=== PATIENT | female | born 1940 | race Hispanic/Latino ===

== ENCOUNTER 2024-11-02 16:41 | Inpatient (IN) | payer OTHER ==
--- NOTE | 2024-11-02 17:45 | RAD REPORT ---
EXAM: Chest Single View HISTORY: Congestion;Chest pain;Cough COMPARISON: None. FINDINGS: LUNGS/PLEURA: Moderate patchy airspace disease in the left lower lobe concerning for pneumonia. Some mild right basilar opacities may also be present. MEDIASTINUM: The mediastinal silhouette is within normal limits. CARDIAC: The cardiac silhouette is within normal limits. UPPER ABDOMEN: No significant abnormality. BONES: No acute abnormality. LINES/TUBES/OTHER: N/A IMPRESSION: Consolidative airspace disease in the left lung base concerning for pneumonia. Possible mild right ba silar opacities as well. Recommend follow-up radiography in 6-8 weeks to ensure resolution.
[2024-11-02 19:34] LABS: Absolute Lymphocytes (CBC) 0.8 K/uL (0.7-4.9); Absolute Monocytes 0.4 K/uL (0.1-1.3); Absolute Neutrophil 12.2 K/uL (1.8-8.0); Basophils % 0.2 % (0-1.3); Eosinophils % 0.1 % (0-4.4); Hematocrit 40.1 % (36.0-45.0); Hemoglobin 13.8 g/dL (12.0-15.0); MCH 31.3 pg (27.0-35.0); MCHC 34.4 g/dL (32.0-36.0); MPV 9.3 fL (7.6-11.3); Monocytes % 3.2 % (3.3-12.3); Neutrophils % 90.5 % (41.7-73.7); Platelets 121 thou/uL (152-406); RBC Red Blood Cell Count 4.41 M/uL (3.86-4.86); Red Cell Distribution Width 14.6 % (12.1-15.2)
[2024-11-02 19:36] LABS: PT Prothrombin Time 17.7 SECONDS (9.4-12.5); PTT, Activated Partial Thromb 38.9 SECONDS (24.3-36.9); Protime INR 1.69
[2024-11-02 19:48] LABS: Albumin 3.1 g/dL (3.4-5.0); Albumin/Globulin Ratio 0.7 (1.1-1.8); Anion Gap 12.6 mEq/L (5.0-15.0); Bilirubin Total 0.6 mg/dL (0.2-1.0); Globulin 4.5 g/dL (2.3-3.5); Potassium 3.6 mEq/L (3.5-5.1); Protein, Total 7.6 g/dL (6.4-8.2)
[2024-11-02 20:07] LABS: SARS-CoV-2 Antigen CONTROL BLUE LINE VIS/BG OK; SARS-CoV-2 Antigen Rapid Res Negative (Negative)
--- NOTE | 2024-11-02 20:22 | ER ---
Nurse's Notes [facility] Name: Bri Corona Age: 83 yrs Sex: Female : 1940 Arrival Date: 11/02/2024 Time: 16:41 Bed 26 Private MD: Diagnosis: Pneumonia, unspecified organism;Influenza due to identified novel influenza A virus;Hyponatremia Presentation: 11/02 17:03 Chief complaint: Headache, painful cough, congestin, body aches, and fever x 1 week. hb Coronavirus screen: Client presents with at least one sign or symptom that may indicate coronavirus-19. Standard/surgical mask placed on the client. Provider contacted for isolation considerations. Ebola Screen: No symptoms or risks identified at this time. Initial Sepsis Screen: Does the patient meet any 2 criteria? No. Patient's initial sepsis screen is negative. Does the patient have a suspected source of infection? No. Patient's initial sepsis screen is negative. Risk Assessment: Do you want to hurt yourself or someone else? Patient reports no desire to harm self or others. Onset of symptoms was October 26, 2023. 17:03 Method Of Arrival: Wheelchair hb 17:03 Acuity: NEO 3 hb Historical: - Allergies: 17:05 No Known Allergies; hb - Immunization history:: Adult Immunizations up to date. - Infectious Disease History:: Denies. - Social history:: Smoking status: Patient denies any tobacco usage or history of. Screenin:00 [facility] ED Fall Risk Assessment (Adult) History of falling in the last 3 months, jb4 including since admission No falls in past 3 months (0 pts) Confusion or Disorientation No (0 pts) Intoxicated or Sedated No (0 pts) Impaired Gait No (0 pts) Mobility Assist Device Used No (0 pt) Altered Elimination No (0 pt) Score/Fall Risk Level 0 - 2 = Low Risk Oriented to surroundings, Maintained a safe environment. Abuse screen: Denies threats or abuse. Nutritional screening: No deficits noted. Tuberculosis screening: No symptoms or risk factors identified. Assessment: 19:00 General: Appears in no apparent distress. comfortable, Behavior is calm, cooperative, jb4 appropriate for age. Pain: Denies pain. Cardiovascular: Patient's skin is warm and dry. GI: Reports diarrhea. : No signs and/or symptoms were reported regarding the genitourinary system. Derm: Skin is intact, Skin is pink, warm \T\ dry. Musculoskeletal: Circulation, motion, and sensation intact. Range of motion: intact in all extremities. 19:00 Neuro: Level of Consciousness is awake, alert, obeys commands, Oriented to person, jb4 place, time, situation. Respiratory: Airway is patent Respiratory effort is even, unlabored, Respiratory pattern is regular, symmetrical. 20:00 Reassessment: Patient appears in no apparent distress at this time. Patient and/or jb4 family updated on plan of care and expected duration. Pain level reassessed. Patient is alert, oriented x 3, equal unlabored respirations, skin warm/dry/pink. 21:00 Reassessment: Patient appears in no apparent distress at this time. Patient and/or jb4 family updated on plan of care and expected duration. Pain level reassessed. Patient is alert, oriented x 3, equal unlabored respirations, skin warm/dry/pink. 22:00 Reassessment: Patient appears in no apparent distress at this time. Patient and/or jb4 family updated on plan of care and expected duration. Pain level reassessed. Patient is alert, oriented x 3, equal unlabored respirations, skin warm/dry/pink. 11/03 04:44 Pain: Denies pain. rg5 04:45 Pain: Pain does not radiate. Pain began. rg5 Vital Signs: 11/02 17:03 BP 108 / 53; Pulse 73; Resp 20; Temp 100(O); Pulse Ox 98% on R/A; Weight 79.38 kg; hb Height 5 ft. 5 in. ; Pain 5/10; 19:45 BP 122 / 61; Pulse 72; Resp 21; Pulse Ox 100% on R/A; jb4 20:30 BP 129 / 53; Pulse 71; Resp 20; Pulse Ox 97% on R/A; jb4 21:45 BP 109 / 54; Pulse 69; Resp 15; Pulse Ox 98% on R/A; jb4 17:03 Body Mass Index 29.12 (79.38 kg, 165.1 cm) hb 17:03 Pain Scale: Adult hb ED Course: 16:46 Patient arrived in ED. im 16:48 Iman Hearn FNP-C is PHCP. kb 16:48 Woody Parker DO is Attending Physician. kb 17:05 Triage completed. hb 17:05 Arm band placed on. hb 17:37 Chest Single View XRAY In Process Unspecified. EDMS 19:00 Patient has correct armband on for positive identification. Bed in low position. Call jb4 light in reach. Side rails up X 1. Provided Education on: plan of care. Client placed on continuous cardiac and pulse oximetry monitoring. NIBP monitoring applied. nurse monitoring on. Pulse ox on. 19:00 No provider procedures requiring assistance completed. Patient maintains SpO2 jb4 saturation greater than 95% on room air. 19:16 Blood Culture Adult (2) Sent. vk 19:16 CBC with Diff Sent. vk 19:16 CMP Sent. vk 19:16 Lactate w/ 2H reflex if indic. Sent. vk 19:16 Protime (+inr) Sent. vk 19:16 Ptt, Activated Sent. vk 19:16 Flu Sent. vk 19:16 SARS-COV-2 Antigen Rapid Sent. vk 19:16 Troponin High Sensitivity Sent. vk 19:16 Inserted saline lock: 20 gauge in right antecubital area, using aseptic technique. vk Blood collected. Flushed with 10 mL NS. 19:35 SARS-COV-2 Antigen Rapid Sent. vk 19:35 Flu Sent. vk 19:35 Troponin High Sensitivity Sent. vk 20:21 Prince Richter MD is Hospitalizing Provider. kb 22:00 Patient admitted, IV remains in place. 4 11/03 03:12 John Delgado, RN is Primary Nurse. jb4 05:40 Assisted to bedside commode. rk3 07:20 Primary Nurse role handed off by John Delgado, RN bd Administered Medications: 11/02 21:02 Drug: Acetaminophen PO 650 mg PO once Route: PO; jb4 11/03 03:24 Follow up: Response: No adverse reaction; Marked relief of symptoms jb4 11/02 21:02 Drug: NS 0.9% IV 500 ml IV at bolus once; to be given as a bolus over 30 minutes Route: jb4 IV; Rate: bolus; Site: right antecubital; 21:32 Follow up: Response: No adverse reaction; IV Status: Completed infusion; IV Intake: jb4 500ml 21:02 Drug: Rocephin IV 1 grams IV at calculated rate once; Given slow IV push per pharmacy jb4 instructions Route: IV; Rate: calculated rate; Site: right antecubital; 21:05 Follow up: Response: No adverse reaction; IV Status: Completed infusion; IV Intake: [id number] 21:02 Drug: Zithromax IVPB 500 mg IVPB once over 1 hrs; mix in 250 mL NS Route: IVPB; Infused jb4 Over: 1 hrs; Site: right antecubital; 22:02 Follow up: Response: No adverse reaction; IV Status: Completed infusion; IV Intake: jb4 250ml Medication: 11/03 04:44 VIS not applicable for this client. rg5 Intake: 11/02 21:05 IV: 10ml; Total: 10ml. jb4 21:32 IV: 500ml; Total: 510ml. jb4 22:02 IV: 250ml; Total: 760ml. jb4 Outcome: 20:21 Decision to Hospitalize by Provider. kb 22:00 Admitted to ER Hold. Please see [facility] for further documentation. jb4 22:00 Condition: stable 22:00 Discharge instructions given to patient, Instructed on the need for admit, Demonstrated understanding of instructions, 11/03 16:57 Patient left the ED. ll1 Signatures: Dispatcher [employer] EDMS Iman Hearn, APPLE PRESS OPERATOR-C APPLE PRESS OPERATOR-Ckb Fatou Rey Heather, RN RN hb Bryson, James, RN RN jbClaude Quintanilla RN RN ll1 Hilary Salinas Vivian vk Gallardo, Rommel, RN RN rg5 Moy Camacho rk3 Corrections: (The following items were deleted from the chart) 03:16 03:12 General: Appears in no apparent distress. comfortable, Behavior is calm, jb4 cooperative, appropriate for age, jb4 : 03:12 Pain: Denies pain. jb4 jb4 :16 03:12 Neuro: Level of Consciousness is awake, alert, obeys commands, Oriented to jb4 person, place, time, situation, jb4 : 03:12 Cardiovascular: Patient's skin is warm and dry. jb4 jb4 :16 03:12 Respiratory: Airway is patent Respiratory effort is even, unlabored, Respiratory jb4 pattern is regular, symmetrical, jb4 : 03:12 GI: Reports diarrhea, jb4 jb4 03:16 03:12 : No signs and/or symptoms were reported regarding the genitourinary system. [id number] 03:16 03:12 Derm: Skin is intact, Skin is pink, warm \T\ dry. jb4 jb4 03:16 03:12 Musculoskeletal: Circulation, motion, and sensation intact. Range of motion: jb4 intact in all extremities, jb4 03:31 03:30 Response: No adverse reaction; IV Status: Completed infusion; IV Intake: 10ml jb4 jb4 06:19 05:40 Assisted to bedside commode. rk3 rk3
--- NOTE | 2024-11-02 20:22 | EDPHYS ---
Physician Documentation [facility] Name: Bri Corona Age: 83 yrs Sex: Female : 1940 Arrival Date: 11/02/2024 Time: 16:41 Bed 26 Private MD: ED Physician Woody Parker HPI: 11/02 17:05 This 83 yrs old Female presents to ER via Wheelchair with complaints of Flu Symptoms. kb 17:05 Pt is an 83 year old female who presents for cough, chest pain with cough, fever, runny kb nose, congestion, post tussive vomiting that started one week ago. Family member is also sick with similar symptoms. Denies shortness of breath. . Historical: - Allergies: 17:05 No Known Allergies; hb - Immunization history:: Adult Immunizations up to date. - Infectious Disease History:: Denies. - Social history:: Smoking status: Patient denies any tobacco usage or history of. ROS: 17:04 Constitutional: As per HPI kb Exam: 17:04 Constitutional: This is a well developed, well nourished patient who is awake, alert, kb and in no acute distress. Head/Face: Normocephalic, atraumatic. ENT: Moist Mucous membranes Cardiovascular: Regular rate Abdomen/GI: Soft, non-tender. No distention Skin: Warm, dry with normal turgor. Normal color. MS/ Extremity: Pulses equal, no cyanosis. Neurovascular intact. Full, normal range of motion. Neuro: Awake and alert, GCS 15, oriented to person, place, time, and situation. 17:04 Chest/axilla: Palpation: tenderness, that is mild, of the anterior aspect of right upper chest and anterior aspect of left upper chest, that partially reproduces the patient's complaints, 17:04 Respiratory: the patient does not display signs of respiratory distress, Respirations: normal, Breath sounds: wheezing: expiratory that is mild, is heard in the left lower lobe and left posterior lower lobe, Vital Signs: 17:03 BP 108 / 53; Pulse 73; Resp 20; Temp 100(O); Pulse Ox 98% on R/A; Weight 79.38 kg; hb Height 5 ft. 5 in. ; Pain 5/10; 19:45 BP 122 / 61; Pulse 72; Resp 21; Pulse Ox 100% on R/A; jb4 20:30 BP 129 / 53; Pulse 71; Resp 20; Pulse Ox 97% on R/A; jb4 21:45 BP 109 / 54; Pulse 69; Resp 15; Pulse Ox 98% on R/A; jb4 17:03 Body Mass Index 29.12 (79.38 kg, 165.1 cm) hb 17:03 Pain Scale: Adult hb MDM: 16:48 Medical Screening Exam initiated kb 17:07 Data reviewed: vital signs, nurses notes. Historians other than the Patient: Family kb Member: family member. 20:20 Differential diagnosis: flu, covid, uri, pneumonia. Consideration of kb Admission/Observation Patient was admitted/placed on observation. Escalation of care including admission/observation considered. Management of patient was discussed with the following: Hospitalist: Dr Richter accepts pt for admission. Counseling: I had a detailed discussion with the patient and/or guardian regarding the historical points, exam findings, and any diagnostic results supporting the discharge/admit diagnosis, lab results, radiology results, the need for further work-up and treatment in the hospital. 21:30 ED course: Sepsis reevaluation complete. kb 11/02 17:01 Order name: Blood Culture Adult (2) kb 11/02 17:01 Order name: CBC with Diff; Complete Time: 21:46 kb 11/02 17:01 Order name: CMP; Complete Time: 19:50 kb 11/02 17:01 Order name: Lactate w/ 2H reflex if indic.; Complete Time: 19:50 kb 11/02 17:01 Order name: Protime (+inr); Complete Time: 19:38 kb 11/02 17:01 Order name: Ptt, Activated; Complete Time: 19:38 kb 11/02 17:01 Order name: Troponin High Sensitivity; Complete Time: 19:50 kb 11/02 17:01 Order name: Flu; Complete Time: 20:08 kb 11/02 17:01 Order name: SARS-COV-2 Antigen Rapid; Complete Time: 20:08 kb 11/02 20:29 Order name: Lactate w/ 2H reflex if indic.; Complete Time: 10:51 EDMS 11/02 20:29 Order name: Magnesium; Complete Time: 10:51 EDMS 11/02 20:29 Order name: NT PRO-BNP; Complete Time: 10:51 EDMS 02/03 20:29 Order name: Phosphorus; Complete Time: 10:51 EDMS 11/02 20:29 Order name: Basic Metabolic Panel EDMS 11/02 20:29 Order name: Basic Metabolic Panel; Complete Time: 10:51 EDMS 11/02 20:29 Order name: Basic Metabolic Panel EDMS 11/02 20:29 Order name: Basic Metabolic Panel EDMS 11/02 20:29 Order name: CBC with Automated Diff EDMS 11/02 20:29 Order name: CBC with Automated Diff; Complete Time: 10:51 EDMS 11/02 20:29 Order name: CBC with Automated Diff EDMS 11/02 20:29 Order name: CBC with Automated Diff EDMS 11/02 20:29 Order name: Lipid Profile EDMS 11/02 20:29 Order name: Lipid Profile; Complete Time: 10:51 EDMS 11/02 21:43 Order name: CBC Smear Scan; Complete Time: 21:46 EDMS 11/03 01:17 Order name: Glucose, Ancillary Testing; Complete Time: 01:30 EDMS 11/03 01:57 Order name: Throat Culture EDMS 11/03 01:58 Order name: Respiratory Syncytial Virus Ag; Complete Time: 01:58 EDMS 11/03 12:13 Order name: Glucose, Ancillary Testing; Complete Time: 12:28 EDMS 11/02 17:01 Order name: Chest Single View XRAY; Complete Time: 17:47 kb 0203 17:01 Order name: Cardiac monitoring; Complete Time: 19:16 kb 0203 17:01 Order name: EKG - Nurse/Tech; Complete Time: 19:35 kb 11/02 17:01 Order name: IV Saline Lock - Large Bore; Complete Time: 19:16 kb 11/02 17:01 Order name: Labs collected and sent; Complete Time: 19:16 kb 0203 17:01 Order name: O2 Per Protocol; Complete Time: 19:15 kb 02 17:01 Order name: O2 Sat Monitoring; Complete Time: 19:16 kb 0203 17:01 Order name: Vital Signs; Complete Time: 19:16 kb EC:32 Rate is 72 beats/min. Rhythm is regular. QRS [place] is Normal. NC interval is normal at kb 160 msec. QRS interval is normal at 118 msec. QT interval is normal at 429 msec. Administered Medications: 21:02 Drug: Acetaminophen PO 650 mg PO once Route: PO; jb4 11/03 03:24 Follow up: Response: No adverse reaction; Marked relief of symptoms jb4 11/02 21:02 Drug: NS 0.9% IV 500 ml IV at bolus once; to be given as a bolus over 30 minutes Route: jb4 IV; Rate: bolus; Site: right antecubital; 21:32 Follow up: Response: No adverse reaction; IV Status: Completed infusion; IV Intake: jb4 500ml 21:02 Drug: Rocephin IV 1 grams IV at calculated rate once; Given slow IV push per pharmacy jb4 instructions Route: IV; Rate: calculated rate; Site: right antecubital; 21:05 Follow up: Response: No adverse reaction; IV Status: Completed infusion; IV Intake: [id number] 21:02 Drug: Zithromax IVPB 500 mg IVPB once over 1 hrs; mix in 250 mL NS Route: IVPB; Infused jb4 Over: 1 hrs; Site: right antecubital; 22:02 Follow up: Response: No adverse reaction; IV Status: Completed infusion; IV Intake: jb4 250ml Disposition: 17:33 I was immediately available on-site in the Emergency Department for consultation in the ms3 care of the patient. Disposition Summary: 11/02/24 20:21 Hospitalization Ordered Notes: Hospitalization Status: Observation kb Provider: Prince yuri Richter Condition: Stable kb Problem: new kb Symptoms: are unchanged kb Bed/Room Type: Standard Location: Telemetry/MedSurg (observation)(11/03/24 15:34) Room Assignment: 206(11/03/24 15:34) Diagnosis - Pneumonia, unspecified organism kb - Influenza due to identified novel influenza A virus kb - Hyponatremia kb Forms: - Medication Reconciliation Form kb - SBAR form kb - Leadership Thank You Letter kb Signatures: Dispatcher [employer] Iman Guzman FNP-C FNP-Ckb Dirrim, Barbara bd Baxter, Heather, RN RN John Hastings RN RN jb4 Woody Parker DO DO ms3 Alondra Amor rv1 Corrections: (The following items were deleted from the chart) 17:01 17:01 BLOOD CULTURE*+BA.LAB.BRZ ordered. EDMS EDMS 17:01 17:01 CBC+H.LAB.BRZ ordered. EDMS EDMS 17:01 17:01 COMPREHENSIVE METABOLIC PANEL+C.LAB.BRZ ordered. EDMS EDMS 17:01 17:01 LACTATE+C.LAB.BRZ ordered. EDMS EDMS 17:01 17:01 PROTIME (+INR)+COAG.LAB.BRZ ordered. EDMS EDMS 17:01 17:01 PTT, ACTIVATED+COAG.LAB.BRZ ordered. EDMS EDMS 17:01 17:01 Troponin High Sensitivity+C.LAB.BRZ ordered. EDMS EDMS 17:01 17:01 Chest Single View+RAD.RAD.BRZ ordered. EDMS EDMS 17:02 17:01 Influenza Screen (A \T\ B)+BA.LAB.BRZ ordered. EDMS EDMS 17:02 17:01 SARS-COV-2 Antigen Rapid+I.LAB.BRZ ordered. EDMS EDMS 21:19 17:01 Accucheck ordered. kb jb4 21:27 20:21 Telemetry/MedSurg (observation) kb rv1 21:27 20:21 kb rv1 11/03 15:34 11/02 21:27 BR ER HOLD rv1 bd 11/03 15:34 11/02 21:27 ERHOLD- rv1 bd
[2024-11-02] MEDS ORDERED: ACETAMINOPHEN 500 MG TAB PO PRN (20:23)
[2024-11-02] MEDS ORDERED: ONDANSETRON 4 MG/2 ML VIAL IV PRN (20:23)
--- NOTE | 2024-11-02 20:32 | P.HP ---
Certification for Inpatient Patient admitted to: Inpatient With expected LOS: >2 Midnights Practitioner: I am a practitioner with admitting privileges, knowledge of patient current condition, hospital course, and medical plan of care. Services: Services provided to patient in accordance with Admission requirements found in Title 42 Section 412.3 of the Code of Federal Regulations Patient History Date of Service: 11/02/24 Reason for admission: Flulike symptoms, influenza A, left lower lobe pneumonia History of Present Illness: Patient is a 83-year-old female who presented to the ER complaining of flulike symptoms. She has been having pleuritic chest pain, cough and fever. Her symptoms have been ongoing for the past 4 days. Associated symptoms include rhinorrhea, congestion and vomiting. Patient has no shortness of breath. Reports sick contact. 1 family member has been experiencing similar symptoms. She arrived in the ER hemodynamically stable. Her WBC is more than 13,000. Patient has a left lower lobe consolidation suggestive of pneumonia. She also tested positive for influenza A. She is being admitted for sepsis secondary to community-acquired pneumonia. Allergies No Known Allergies Allergy (Unverified 11/02/24 21:45) Physical Examination - Physical Exam General: Acute distress, Other (congested) HEENT: Atraumatic, Normocephalic Respiratory: Diminished Cardiovascular: No edema, Normal pulses, Regular rate/rhythm, Normal S1 S2 Neurological: Normal speech - Studies Laboratory Data (last 24 hrs) 11/02/24 11/02/24 11/02/24 19:12 19:12 19:12 WBC 13.40 H Hgb 13.8 Hct 40.1 Plt Count 121 L PT 17.7 H INR 1.69 APTT 38.9 H Sodium 128 L Potassium 3.6 BUN 33 H Creatinine 1.30 H Glucose 100 Total Bilirubin 0.6 AST 44 H ALT 24 Alkaline Phosphatase 75 Microbiology Data (last 24 hrs): 11/02/24 19:25 Nasopharnyx Influenza Type A Antigen Screen - Final 11/02/24 19:25 Nasopharnyx Influenza Type B Antigen Screen - Final Assessment and Plan - Problems (Diagnosis) (1) Sepsis Current Visit: Yes Status: Acute (2) Community acquired pneumonia Current Visit: Yes Status: Acute (3) Hyponatremia Current Visit: Yes Status: Acute - Plan Assessment This is a 83-year-old female who is being admitted for community-acquired pneumonia complicated by influenza A. She meets criteria for sepsis as evidenced by fever, leukocytosis and evidence of infection. Sepsis Bacterial pneumonia Influenza A infection Hyponatremia Renal insufficiency, possibly YAZ versus CKD stage III Plan: Will admit inpatient with telemetry Start patient on ceftriaxone and azithromycin Tamiflu will also be added due to evidence of influenza Antitussives Resume rest of home medications upon reconciliation Patient is hemodynamically stable She will benefit from PT/OT before discharge Patient is [place]isian-speaking. Daughter states that patient takes apixaban. She has been resumed. The indication and dosage is still unclear. Family to bring home meds tomorrow - Advance Directives Does patient have a Living Will: No Does patient have a Durable POA for Healthcare: No
[2024-11-02] MEDS ORDERED: AZITHROMYCIN 500 MG INJ IVPB ONE (20:38)
[2024-11-02] MEDS ORDERED: CEFTRIAXONE 1000 MG/VIAL ONE (20:38)
[2024-11-02] MEDS ORDERED: ACETAMINOPHEN 325 MG TABLET ONE (20:38)
[2024-11-02] MEDS ORDERED: NA CHLORIDE 0.9% 250 ML ONE (20:38)
[2024-11-02] MEDS ORDERED: NA CHLORIDE 0.9% 500 ML ONE (20:39)
[2024-11-02] MEDS: D5 0.9 NS 1,000 ML IV SCH (21:00)
[2024-11-02 21:42] LABS: Blood Morphology Comment NOT SEEN (NOT SEEN); Platelet Estimate DECR; Toxic Granulation PRESENT; White Blood Cell Scan OK (OK)
[2024-11-02] MEDS: APIXABAN 2.5 MG TABLET PO SCH (23:45)
[2024-11-03] MEDS: NA CHLORIDE 0.9% 1,000 ML IV SCH (00:25)
[2024-11-03] MEDS ORDERED: GUAIFENESIN 600 MG SA TAB PO ONE ×2 (00:36→09:12)
[2024-11-03] MEDS ORDERED: OSELTAMIVIR 75 MG CAP PO ONE ×2 (00:39→11:55)
[2024-11-03] MEDS ORDERED: BENZONATATE 100 MG CAP PO ONE (00:39)
[2024-11-03] MEDS ORDERED: NA CHLORIDE 0.9% 1,000 ML ONE ×2 (00:40→16:53)
[2024-11-03] MEDS: OSELTAMIVIR 75 MG CAP PO ONE (00:49)
[2024-11-03] MEDS: BENZONATATE 100 MG CAP PO SCH ×2 (00:50→10:30)
[2024-11-03] MEDS: GUAIFENESIN 600 MG SA TAB PO SCH (00:50)
[2024-11-03 03:43] VITALS: BMI 29.1
[2024-11-03 05:16] LABS: Absolute Basophils 0.1 K/uL (0-0.5); Absolute Lymphocytes (CBC) 0.9 K/uL (0.7-4.9); Absolute Monocytes 0.6 K/uL (0.1-1.3); Absolute Neutrophil 9.6 K/uL (1.8-8.0); Basophils % 0.5 % (0-1.3); Eosinophils % 0.3 % (0-4.4); Hematocrit 37.8 % (36.0-45.0); Hemoglobin 12.5 g/dL (12.0-15.0); Lymphocytes % 7.9 % (15.3-44.8); MCH 30.6 pg (27.0-35.0); MCHC 33.1 g/dL (32.0-36.0); MCV 92.3 fL (80-100); MPV 8.8 fL (7.6-11.3); Monocytes % 5.8 % (3.3-12.3); Nucleated Red Blood Cells % 0.2 % (0-0); Platelets 117 thou/uL (152-406); Red Cell Distribution Width 14.8 % (12.1-15.2)
[2024-11-03 05:21] LABS: Neutrophils % 85.5 % (41.7-73.7)
[2024-11-03 05:48] LABS: Magnesium 2.3 mg/dL (1.6-2.4); Phosphorus 2.1 mg/dL (2.5-4.9)
[2024-11-03 05:56] LABS: Anion Gap 11.5 mEq/L (5.0-15.0); Potassium 3.5 mEq/L (3.5-5.1)
[2024-11-03] MEDS ORDERED: OSELTAMIVIR 75 MG CAP PO SCH (09:00)
[2024-11-03] MEDS: CEFTRIAXONE 1,000 MG in NA CHLORIDE 0.9% 50 ML IVPB SCH (09:00)
[2024-11-03] MEDS ORDERED: CEFTRIAXONE 1000 MG/VIAL ONE (09:12)
[2024-11-03] MEDS ORDERED: NA CHLORIDE 0.9% 50 ML ONE (09:13)
[2024-11-03] MEDS ORDERED: APIXABAN 2.5 MG TABLET ONE (09:13)
[2024-11-03] MEDS: GUAIFENESIN/CODEINE 5ML UCUP PO ONE (09:15)
[2024-11-03] MEDS: OSELTAMIVIR 30 MG CAP PO SCH (10:00)
[2024-11-03] MEDS ORDERED: GUAIFENESIN/CODEINE 5ML UCUP ONE (11:56)
--- NOTE | 2024-11-03 12:11 | EKG ---
Test Date: 2024-11-02 Test Time: 19:28:49 Distributed Generation Project Manager: THUY MEASUREMENT RESULTS: Intervals: Rate: 72 TN: 160 QRSD: 118 QT: 392 QTc: 429 [place]: P: 85 TN: 160 QRS: -3 T: 81 INTERPRETIVE STATEMENTS: Normal sinus rhythm Nonspecific intraventricular conduction delay Borderline ECG No previous ECG available for comparison Electronically Signed On 11-03-24 12:10:07 MANAGER BRAND by Tima Gee
[2024-11-03] MEDS: AZITHROMYCIN IV 500 MG in NA CHLORIDE 0.9% 250 ML IVPB SCH (17:49)
[2024-11-04] MEDS ORDERED: IPRATROPIUM BROM 0.5MG/2.5ML NEB PRN (01:32)
[2024-11-04] MEDS ORDERED: ALBUTEROL 2.5 MG/3 ML NEB SOL NEB PRN (01:32)
--- NOTE | 2024-11-04 01:34 | P.PN ---
Subjective Date of Service: 11/03/24 Patient's coughing is much better. Patient given antitussives. Patient with influenza. Continue with droplet precaution. Continue with Tamiflu. Continue with steroids and neb treatments. Clinically doing better. Review of Systems 10-point ROS is otherwise unremarkable Physical Examination - Vital Signs Temperature: 97.4 F Blood Pressure: 138/68 Pulse: 66 Respirations: 18 Pulse Ox (%): 96 - Physical Exam General: Alert, In no apparent distress, Oriented x3 Respiratory: Other ( coarse breath sounds) Cardiovascular: Regular rate/rhythm, Normal S1 S2 Gastrointestinal: Normal bowel sounds, Soft and benign, Non-distended, No tenderness Musculoskeletal: No clubbing, No swelling, No tenderness Integumentary: No rashes Neurological: Other ( no focal deficits) - Studies Microbiology Data (last 24 hrs): 11/02/24 19:25 Nasopharnyx Influenza Type A Antigen Screen - Final 11/02/24 19:25 Nasopharnyx Influenza Type B Antigen Screen - Final Medications List Reviewed: Yes Assessment & Plan - Problems (Diagnosis) (1) Influenza and pneumonia Current Visit: Yes Status: Acute (2) Hyponatremia Current Visit: Yes Status: Acute (3) Sepsis Current Visit: Yes Status: Acute - Advance Directives Does patient have a Living Will: No Does patient have a Durable POA for Healthcare: No
[2024-11-04] MEDS: GUAIFENESIN/CODEINE 5ML UCUP PO PRN (02:16)
[2024-11-04] MEDS: METHYLPREDNISOLONE 125 MG INJ IV SCH (05:35)
[2024-11-04] MEDS: LEVOTHYROXINE SOD 0.05 MG TABLET PO SCH (05:35)
[2024-11-04 06:17] LABS: Absolute Basophils 0.1 K/uL (0-0.5); Absolute Eosinophils 0.1 K/uL (0-0.5); Absolute Lymphocytes (CBC) 1.1 K/uL (0.7-4.9); Absolute Monocytes 0.8 K/uL (0.1-1.3); Absolute Neutrophil 6.6 K/uL (1.8-8.0); Basophils % 1.1 % (0-1.3); Eosinophils % 1.6 % (0-4.4); Hematocrit 38.3 % (36.0-45.0); Hemoglobin 13.2 g/dL (12.0-15.0); MCH 31.4 pg (27.0-35.0); MCHC 34.3 g/dL (32.0-36.0); MCV 91.6 fL (80-100); MPV 8.9 fL (7.6-11.3); Monocytes % 9.3 % (3.3-12.3); Nucleated Red Blood Cells % 0.1 % (0-0); Platelets 144 thou/uL (152-406); RBC Red Blood Cell Count 4.18 M/uL (3.86-4.86); Red Cell Distribution Width 14.8 % (12.1-15.2)
[2024-11-04 06:31] LABS: PT Prothrombin Time 14.2 SECONDS (9.4-12.5); PTT, Activated Partial Thromb 34.2 SECONDS (24.3-36.9); Protime INR 1.36
[2024-11-04 06:42] LABS: Anion Gap 9.1 mEq/L (5.0-15.0); Potassium 4.1 mEq/L (3.5-5.1)
[2024-11-04] MEDS: carvediloL 25 MG TAB PO SCH (08:59)
[2024-11-04] MEDS: ROSUVASTATIN 10 MG TAB PO SCH (08:59)
[2024-11-04] MEDS: **PT MED**Empagliflozin [Jardiance] 25 MG Tablet PO SCH (09:00)
[2024-11-04 10:28] LABS: Band Neutrophils 3 % (0-1); Differential Total Cells Count 100; Eosinophils 2 % (0-3); Lymphocytes 12 % (15-42); Monocytes 8 % (0-10); Segmented Neutrophils 73 % (40-80)
[2024-11-04 10:29] LABS: Atypical Lymphocytes 1 %; Metamyelocytes 1 % (0-0); Platelet Estimate DECR
[2024-11-04 10:30] LABS: Blood Morphology Comment NOT SEEN (NOT SEEN)
[2024-11-04 12:11] VITALS: BP 148/67; TEMP 97.8
[2024-11-04 12:23] VITALS: O2SAT 95
--- NOTE | 2024-11-04 13:23 | ECHO ---
HEIGHT: 5 ft 5 in WEIGHT: 175 lb 0.047 oz DATE OF STUDY: 11/04/[address]: Cynthia Batista MD 2-DIMENSIONAL: YES M.MODE: YES DOPPLER: YES COLOR FLOW: YES TDS: YES PORTABLE: YES DEFINITY: BUBBLE STUDY: DIAGNOSIS: CONGESTIVE HEART FAILURE CARDIAC HISTORY: CATHERIZATION: NO SURGERY: NO PROSTHETIC VALVE: NO PACEMAKER: NO MEASUREMENTS (cm) DIASTOLIC (NORMALS) SYSTOLIC (NORMALS) IVSd 1.1 (0.6-1.2) LA Diam 3.0 (1.9-4.0) LVEF 55% LVIDd 4.1 (3.5-5.7) LVIDs 3.0 (2.0-3.5) %FS 29% LVPWd 1.2 (0.6-1.2) Ao Diam 2.6 (2.0-3.7) 2 DIMENSIONAL ASSESSMENT: RIGHT ATRIUM: NORMAL LEFT ATRIUM: NORMAL RIGHT VENTRICLE: NORMAL LEFT VENTRICLE: NORMAL TRICUSPID VALVE: MODERATE TRICUSPID REGURGITATION MITRAL VALVE: MILD MITRAL REGURGITATION PULMONIC VALVE: NORMAL AORTIC VALVE: NORMAL PERICARDIAL EFFUSION: NONE AORTIC ROOT: NORMAL LEFT VENTRICULAR WALL MOTION: NORMAL DOPPLER/COLOR FLOW: GRADE II DIASTOLIC DYSFUNCTION COMMENTS: 1. NORMAL LEFT VENTRICULAR SYSTOLIC FUNCTION, EJECTION FRACTION 55-60%, NORMAL WALL MOTION 2. GRADE II DIASTOLIC DYSFUNCTION 3. MODERATE TRICUSPID REGURGITATION 4. MODERATE PULMONARY HYPERTENSION (RIGHT VENTRICULAR SYSTOLIC PRESSURE 50-55 mmHg) 5. MILD ELEVATED FILLING PRESSURE (RIGHT ATRIAL PRESSURE 5-10 mmHg) TECHNOLOGIST: SAUNDRA SCHUSTER
--- NOTE | 2024-11-04 17:20 | RAD REPORT ---
EXAMINATION: ONE VIEW CHEST XR CLINICAL INDICATION: Female, 83 years old.,pneumonia TECHNIQUE: Frontal chest projection is submitted. Examination is limited by patient positioning and t echnique. COMPARISON: 11/02/2024 FINDINGS: The lungs are well inflated. Patchy bibasilar airspace opacities worse on the left, stable in appeara nce. No pneumothorax or sizable effusion. The heart is normal in size. Mediastinal contours are unremarkable. IMPRESSION: Stable patchy bibasilar airspace opacities worse on the left, concerning for pneumonitis.
== END 2024-11-04 15:32 | disposition home or self-care (01) | DRG 871 ==
LOC: ER 16:41 → ERHOLD 20:23 → 2ND 11-03 16:45
PROVIDERS: ADMIT Internal Medicine; ATTEND Hospitalist
DX: A41.89 Other specified sepsis (principal); J09.X1 Influenza due to identified novel influenza A virus with pneumonia; J15.9 Unspecified bacterial pneumonia; E87.1 Hypo-osmolality and hyponatremia; N28.9 Disorder of kidney and ureter, unspecified; Z11.52 Encounter for screening for COVID-19
CPT/HCPCS: 36415; 71045; 80048; 80053; 80061; 82947; 83605; 83735; 83880; 84100; 84145; 84484; 85025; 85610; 85730; 87040; 87045; 87046; 87070; 87081; 87205; 87804; 87807; 87811; 89055; 93005; 93306; 94760; 96365; 96375; 97116; 97161; 97530; 99285; J0696; J2919; J7030; J7040; J7050